=== PATIENT | female | born 1995 | race Caucasian/White ===

== ENCOUNTER 2019-08-02 13:14 | Outpatient (CLI) | payer OTHER | END 2019-08-02 23:59 | disposition home or self-care (01) | LOC: CFH 13:14 | PROVIDERS: ATTEND Registered Nurse | DX: Z77.098 Contact with and (suspected) exposure to other hazardous, chiefly nonmedicinal, chemicals (principal); Y92.89 Other specified places as the place of occurrence of the external cause | CPT/HCPCS: 71250 ==